=== PATIENT | male | born 1940 | race Caucasian/White ===

== ENCOUNTER 2018-08-05 21:18 | Inpatient (IN) | payer MEDICARE ==
[~2018-08-05] VITALS: Ht 182.9 cm; Wt 97.1 kg
[~2018-08-05 21:18] MED LIST: ALBIPROI INH; ALBU.083IS IH; ALBU2.5V5 NEB; ALLO300; ALLO300 PO; AMOCLA875 PO; ASPI325; ASPI325EC PO; ATEN50; ATEN50 PO; BECL80OI INH; BETA1; Carvedilol12.5 MG PO; FLUT.05NI; FLUT1DIS8 INH; FURO40; FURO40 PO; Flonase 0.05% N16 GM; HYDACE5 PO; Hytrin2 MG PO; IPRA.03NI; LEVFLO500 PO; LEVITRA PO; LISI10 PO; LISI20 PO; LOVA20; LOVA20 PO; MIRALAX17 GM PO; NITR.4SL SL; Norco 5-325 Ta1 EACH PO; PRED10 PO; PRED20 PO; PRINIVIL; Prednisone20 MG PO; SERT50 PO; SIMV5 PO; SPIR25; SPIR25 PO; TERA2; TERA2 PO; Zocor20 MG PO
[2018-08-05 21:35] LABS: BASOPHILS ABSOLUTE AUTO 0.02 K/mm3 (0.00-0.23); BASOPHILS PERCENT AUTO 0 % (0-2); EOSINOPHILS ABSOLUTE AUTO 0.03 K/mm3 (0.00-0.68); EOSINOPHILS PERCENT AUTO 1 % (0-6); Hematocrit 26.9 % (37.0-53.0); Hemoglobin 9.2 g/dL (13.5-17.5); IMMATURE GRAN PERCENT AUTO 2 % (0-1); LYMPHOCYTES ABSOLUTE AUTO 0.51 K/mm3 (0.84-5.20); LYMPHOCYTES PERCENT AUTO 8 % (21-46); MONOCYTES ABSOLUTE AUTO 1.37 K/mm3 (0.16-1.47); MONOCYTES PERCENT AUTO 22 % (4-13); Mean Corpuscular HGB 34.8 pg (26.0-34.0); Mean Corpuscular HGB Conc 34.2 g/dL (31.5-36.5); Mean Corpuscular Volume 102 fL (80-100); Mean Platelet Volume 10.2 fL (9.1-12.4); NEUTROPHILS PERCENT AUTO 67 % (41-73); NRBC ABSOLUTE 0.03 K/mm3 (0.00-0.02); NRBC Auto 0.5 /100 WBC (0.0-0.2); Platelet Count 163 K/mm3 (150-400); RDW Coefficient Variation 19.5 % (11.7-14.2); RDW Standard Deviation 72.7 fL (35.1-46.3); Red Blood Cell Count 2.64 M/mm3 (4.30-5.90); White Blood Cell Count 6.23 K/mm3 (4.00-11.30)
[2018-08-05 21:52] LABS: Alanine Aminotransfer (ALT/SGP 30 U/L (12-78); Albumin/Globulin Ratio 1.7 (0.8-1.8); Alk Phos 60 U/L (50-136); Anion Gap 6 mmol/L (6-16); Aspartate Aminotrans (AST/SGOT 19 U/L (12-37); Bilirubin, Total 1.7 mg/dL (0.1-1.0); Blood Urea Nitrogen 12 mg/dL (8-24); Bun/Creatinine Ratio 17.5 (12.0-20.0); CO2, Blood 27 mmol/L (21-32); Chloride, Blood 90 mmol/L (98-108); Creatinine, Blood 0.69 mg/dL (0.60-1.20); Globulin, Blood 2.3 g/dL (2.2-4.0); Glomerular Filtration Rate >60 (60-); Glucose, Blood 105 mg/dL (70-99); Potassium, Blood 4.4 mmol/L (3.5-5.5); Sodium, Blood 123 mmol/L (136-145); Total Protein, Blood 6.3 g/dL (6.4-8.2); Troponin I 0.016 ng/mL (0.000-0.040)
[2018-08-05 22:10] LABS: Base Excess Venous 1.2 mmol/L; Bicarbonate Venous 25.3 mmol/L (24.0-30.0); PCO2 Venous 44.2 mmHg (38-42); PO2 Venous 85.2 mmHg (38-42); pH Blood Venous 7.38 (7.34-7.37)
[2018-08-05] MEDS ORDERED: CARV6.25 PO (22:45)
[2018-08-05] MEDS ORDERED: LO-DOSE ASPIRIN81 MG PO (22:46)
[2018-08-05] MEDS ORDERED: TERA5 PO (22:46)
--- NOTE | 2018-08-05 23:58 | NUR ---
ADMIT NOTE RECEIVED REPORT FROM MADIHA MCDONALD. PT ARRIVES TO ROOM VIA GURNEY, TX'D TO BED WITH SLIDER SHEET AND STAFF X 4. PT IS ABLE TO ASSIST WITH TURNING FROM SIDE TO SIDE BUT HAS INCREASED WORK OF BREATHING WITH MINIMAL ACTIVITY. RT PRESENT WITH BIPAP AT BEDSIDE, PT IS MAINTAINING SATS IN THE LOW 90'S ON [address] NC. CONT BIOX IN PLACE. PT STATES "I'VE GOTTA PEE RIGHT NOW". ATTEMPTS TO VOID WHILE IN BED WITH URINAL YIELD MINIMAL RESULTS VIA DRIBBLING STREAM OVER LONG PERIODS OF TIME. PT STATES "I STILL NEED TO KEEP PEEING BUT I THINK I NEED TO STAND". AFTER ATTEMPTING TO ASSIST PT TO SIT ON EDGE OF BED, PT BECOMES VERY DISTRESSED WITH RESPIRATORY RATE IN THE HIGH 40'S, UNABLE TO TOLERATE ACTIVITY. CALL PLACED TO DR. BRISENO AND ORDER RECEIVED FOR BLADDER SCAN. RESULT OF [address] BRISENO AND ORDER RECEIVED FOR INDWELLING CATHETER FOR STRICT I/O'S AND RESPIRATORY DISTRESS WITH DIURESIS. PLACED COUDE WITH MINIMAL DIFFICULTY, PT TOLERATED WELL AND IMMEDIATE RETURN OF URINE IN BAG OF APPROX 500 ML. PT STATES "THAT FEELS MUCH BETTER LIKE I CAN REST NOW". WILL INITIATE ADMISSION ORDERS AND MONITOR PT CLOSELY. BED ALARM ON AND BELONGINGS IN REACH.
[2018-08-06] MEDS ORDERED: FLUT1DIS8 INH (01:51)
[2018-08-06] MEDS ORDERED: Flonase 0.05% N16 GM (01:53)
[2018-08-06] MEDS ORDERED: GAVILAX17 GM PO (01:54)
--- NOTE | 2018-08-06 02:00 | NUR ---
HANDOFF REPORT GIVEN TO PIA MCDONALD TO ASSUME CARE AT THIS TIME. PT IS RESTING IN BED, CONFUSED AND CALLING OUT AT TIMES. VSS, NO ACUTE CONCERNS.
--- NOTE | 2018-08-06 03:45 | NUR ---
ED ADMIT AT 0000. CONFUSED ABOUT WHEREABOUTS BUT DOES KMOW NAME AND A FEW RELATIVES BY NAME. ENC TO VOID INSISTING HE IS UNABLE . BLADDER SCAN NOTED 271 ML BUT COMPLETELY MISERABLE AND ESCALATING W/ ANXIETY AND NOW VERY TACHEPNEC AND 32 RR. REFUSES BIPAP NOW BUT 2L NC WNL SATS/ DENIES SPECIFIC PAIN .GENERAL RESTLESSNESS AND ANXIETY.MD AGREES TO HAVE LOPEZ REMAIN IN . 500 ML RETURNS IMMEDIATELY. EXTREME BOUTS OF CONFUSION AND STAFF CONSTANT REMINDERS OF CONDITION AND WHERE ABOUTS AND FAMILY NOT HERE HE IS TALKING TO THEM AND THINKS HE IS AT HOME. SOME PERIOD OF CALMNESS THEN ESCALATED AGAIN AT 0330 AND TRIES TO GET OUT OF BED. ENC FOR THE SECOND TIME TO WEAR BIPAP AND THIS TIME HE IS KEEPING ON LONGER THAN 10 MIN. RR SLOWING FROM 40 W/ ANXIETY AND PANIC TO 26 AND RESTING A LITTLE.HIGH FOWLERS . BEFORE BIPAP ON, A LOT OF THICK WHITE SPUTUM ..GREAT COUGH EFFORT. SR BBB.
[2018-08-06 04:24] LABS: BASOPHILS ABSOLUTE AUTO 0.01 K/mm3 (0.00-0.23); BASOPHILS PERCENT AUTO 0 % (0-2); EOSINOPHILS PERCENT AUTO 0 % (0-6); Hematocrit 29.9 % (37.0-53.0); Hemoglobin 10.2 g/dL (13.5-17.5); IMMATURE GRAN ABSOLUTE AUTO 0.06 K/mm3 (0.00-0.10); IMMATURE GRAN PERCENT AUTO 1 % (0-1); LYMPHOCYTES ABSOLUTE AUTO 0.25 K/mm3 (0.84-5.20); LYMPHOCYTES PERCENT AUTO 6 % (21-46); MONOCYTES ABSOLUTE AUTO 0.29 K/mm3 (0.16-1.47); MONOCYTES PERCENT AUTO 6 % (4-13); Mean Corpuscular HGB 34.8 pg (26.0-34.0); Mean Corpuscular HGB Conc 34.1 g/dL (31.5-36.5); Mean Corpuscular Volume 102 fL (80-100); Mean Platelet Volume 10.3 fL (9.1-12.4); NEUTROPHILS ABSOLUTE AUTO 3.92 K/mm3 (1.96-9.15); NEUTROPHILS PERCENT AUTO 87 % (41-73); NRBC ABSOLUTE 0.03 K/mm3 (0.00-0.02); NRBC Auto 0.7 /100 WBC (0.0-0.2); Platelet Count 160 K/mm3 (150-400); RDW Coefficient Variation 19.5 % (11.7-14.2); RDW Standard Deviation 73.7 fL (35.1-46.3); Red Blood Cell Count 2.93 M/mm3 (4.30-5.90); White Blood Cell Count 4.53 K/mm3 (4.00-11.30)
[2018-08-06 04:42] LABS: Anion Gap 9 mmol/L (6-16); Blood Urea Nitrogen 12 mg/dL (8-24); Bun/Creatinine Ratio 19.8 (12.0-20.0); CO2, Blood 26 mmol/L (21-32); Calcium, Blood 8.4 mg/dL (8.5-10.1); Chloride, Blood 90 mmol/L (98-108); Creatinine, Blood 0.61 mg/dL (0.60-1.20); Glomerular Filtration Rate >60 (60-); Glucose, Blood 148 mg/dL (70-99); Potassium, Blood 3.7 mmol/L (3.5-5.5); Sodium, Blood 125 mmol/L (136-145)
--- NOTE | 2018-08-06 06:15 | NUR ---
SHIFT SUMMARY.KEPT BIPAP ON FOR LAST 2.5 HR. W/ GOOD SLEEP / AROUSABLE AND NO FURTHER PANIC EPISODES SINCE PRE BIPAP AND GOOD SLEEP. RR USUALLY 24 WHEN ASLEEP ON BIPAP..12/5...30 % FIO2 BUR 16
--- NOTE | 2018-08-06 16:29 | NUR ---
DEVICE INTERROGATION DONE PER ORDER. LAST INTERROGATION 11/29/17.NORMAL FUNCTIONING Crow-V ICD. NORMAL ATRIAL SENSING AND CAPTURE. NORMAL VENTRICULAR CAPTURE. P WAVE 3.0V. NO R WAVE (VVI RATE 30 BPM). ATRIAL LEAD IMPEDANCE 400 OHMS. RV LEAD IMPEDANCE 637 OHMS. LV LEAD IMPEDANCE 737 OHMS. ATRIAL CAPTURE THRESHOLD .625 V@.5ms. RV CAPTURE THRESHOLD 0.5V@.5ms.LV CAPTURE THRESHOLD 1.125V@.5MS. Ap90%.Bi-Mechanical Striper >99%. NO EVENTS NOTED. INFORMATION GIVEN TO JOSEPHINE MCDONALD.
--- NOTE | 2018-08-06 16:34 | NUR ---
ERAN IV SITE.
--- NOTE | 2018-08-06 16:35 | NUR ---
RAC 20G IV SITE.
--- NOTE | 2018-08-06 16:42 | NUR ---
FIELD START, 18G LAC.
--- NOTE | 2018-08-06 19:39 | NUR ---
HE HAS HAD ANGST MOST OF THE DAY BECAUSE HE HATES BEING IN THE HOSPITAL. HE SAT UP FOR SEVERAL HRS, BEING MORE COMFORTABLE IN THE CHAIR THAN THE BED. O2 NC 2L AFTER COMING OFF THE BIPAP AROUND 1030 THIS MORNING. SATS WNL. LOTS OF U.O. IN LOPEZ FROM BID LASIX. DENIES SOB NOW BUT LOOKS SOB INTERMITTENTLY. HAS AN INTERMITTENT COUGH. PACEMAKER INTERROGATION DONE TODAY AND ECHO DONE. HE HAD 2 SMALL BM'S ON BSC TODAY. HE TRANSFERS WELL WITH 1 ASSIST. POOR APPETITE. DENIED NEED FOR PAIN MEDICINE. HE UNDERSTANDS HE WILL BE WITH US ANOTHER NIGHT.
--- NOTE | 2018-08-07 05:13 | NUR ---
SHIFT SUMMARY PT ALERT, ORIENTED TO SELF AND FAMILY ONLY. PT REQUIRING REORIENTATION T/O SHIFT OF LOCATION AND ABSENCE OF SPOUSE THAT PT CALLS OUT FOR. PT EAGER TO GO HOME. VSS. SPO2 > 90% ON 2L NC. PT WEARING BIPAP FOR SHORT INCREMENTS THIS SHIFT X2. MONITOR SHOWS SR W/ BBB, HR 60'S-70'S. LOPEZ CATH PATENT AND DRAINING CLEAR YELLOW URINE. WILL CONTINUE TO MONITOR AND PROVIDE CARE UNTIL REPORT OFF TO DAY SHIFT RN.
[2018-08-07 07:01] LABS: BASOPHILS PERCENT AUTO 0 % (0-2); EOSINOPHILS PERCENT AUTO 0 % (0-6); Hematocrit 26.6 % (37.0-53.0); Hemoglobin 9.2 g/dL (13.5-17.5); IMMATURE GRAN ABSOLUTE AUTO 0.02 K/mm3 (0.00-0.10); IMMATURE GRAN PERCENT AUTO 1 % (0-1); LYMPHOCYTES ABSOLUTE AUTO 0.53 K/mm3 (0.84-5.20); LYMPHOCYTES PERCENT AUTO 16 % (21-46); MONOCYTES ABSOLUTE AUTO 0.78 K/mm3 (0.16-1.47); MONOCYTES PERCENT AUTO 23 % (4-13); Mean Corpuscular HGB Conc 34.6 g/dL (31.5-36.5); Mean Corpuscular Volume 101 fL (80-100); Mean Platelet Volume 9.9 fL (9.1-12.4); NEUTROPHILS ABSOLUTE AUTO 2.08 K/mm3 (1.96-9.15); NEUTROPHILS PERCENT AUTO 61 % (41-73); NRBC ABSOLUTE 0.04 K/mm3 (0.00-0.02); NRBC Auto 1.2 /100 WBC (0.0-0.2); Platelet Count 161 K/mm3 (150-400); RDW Coefficient Variation 19.9 % (11.7-14.2); RDW Standard Deviation 74.4 fL (35.1-46.3); Red Blood Cell Count 2.63 M/mm3 (4.30-5.90); White Blood Cell Count 3.41 K/mm3 (4.00-11.30)
[2018-08-07 07:22] LABS: Anion Gap 7 mmol/L (6-16); Blood Urea Nitrogen 23 mg/dL (8-24); Bun/Creatinine Ratio 33.7 (12.0-20.0); CO2, Blood 31 mmol/L (21-32); Calcium, Blood 8.5 mg/dL (8.5-10.1); Chloride, Blood 91 mmol/L (98-108); Creatinine, Blood 0.68 mg/dL (0.60-1.20); Glomerular Filtration Rate >60 (60-); Glucose, Blood 128 mg/dL (70-99); Potassium, Blood 3.6 mmol/L (3.5-5.5); Sodium, Blood 129 mmol/L (136-145)
--- NOTE | 2018-08-07 07:30 | NUR ---
AM ASSESSMENT: Pt resting in bed, yelling out for help. Saying "nobody checks on me, everyone is just out there laughing and not helping." When asked what he needs, pt states that he needs to have his eye drops. Denies other needs. Pt was given eye drops and encouraged to use his call light. Pt is oriented to self, knows he is at a hospital, but is confused to situation and seems very unaware of hospital routine. VSS. LS with wheezing throughout. HR reg. BT positive. Pulses palp. +2 edema in BLE. Pt C/O chronic hip pain, rates it about a 4/10. Bed alarm on and call light in reach. Will garrett.
--- NOTE | 2018-08-07 18:28 | NUR ---
SHIFT SUMMARY: Pt up in recliner chair at this time. Has been up in recliner since this AM and has been able to stand with staff and march in place 2 times and just stand 2 times. Pt has declined wanting to go back to bed at all today. VSS throughout shift. LS have remained wheezy but was able to titrate down to RA. Biox has remained >90%. Pt has wanted to go home all day. When family came to visit physician and then palliative care nurse went in to visit. Plan was made to possibly discharge tomorrow with hospice. NO other changes at this time. Will report to night RN. Stable at end of shift.
--- NOTE | 2018-08-08 07:28 | NUR ---
AM ASSESSMENT: Pt sitting up at edge of bed when RN entered room. Pt very upset that he has not been discharged yet. States "I was told that I would be leaving this morning". Reminded Pt that he was told he would be discharged today, but not in the morning, after the physican saw him and after he had everything he needed at home. Pt was not pleased with this and voiced his frustrations. Pt was agreeable to treatment and allowed VS and assessment. VSS. LS with wheezing, HR Reg. Bt positive. Pt passing a lot of flatus but no BM. Pulses palp. Pt has 2+ edema in BLE. Call light in reach but pt tends to yell out instead of call. Pt does have very poor vision and can only see some shapes and peripherally. Steady with walker. Will continue to monitor. Call light in reach.
--- NOTE | 2018-08-08 07:47 | NUR ---
SUMMARY: ADMIT DAY 2 CHF EXACERBATION ON HOSPITALIST SERVICE. VSS, ROOM AIR, 2L O2 WHILE ASLEEP IN BED TO MAINTAIN SPO2 >88%. WHEEZY @ TIMES BUT RESOLVED WITH NEB TX AND PRODUCTIVE COUGH. PT MOVES WELL WITH 1 ASSIST USING GB, FWW TO BSC, CHAIR AND BED. LOPEZ REMAINS PATENT CLEAR, YELLOW URINE WITH CATH CARE COMPLETED X2 AND TRACE SCROTAL EDEMA NOTED. PT CONTINUES TO BE DEMANDING @ TIMES AND CALLS OUT FOR HELP; CONFUSED AT TIMES AND CONCRETE IN THINKING. PLAN TO DC HOME TODAY WITH HOSPICE.
--- NOTE | 2018-08-08 09:56 | NUR ---
Pt visit this AM. Pt standing over BC upon arrival. Certified Pathology Assistant Libby present during visit as well. Assisted RETIREMENT BENEFITS SPECIALIST with Pt sitting on bed. Listened as Pt expressed frustrations about being in the hospital. Pt is anxious to go home. Called and spoke with ambulatory care coordinator Cecile regardeing discharge plan prior to visit. Spoke with ambulatory care coordinator Page outside of Pt's room and she reports hospice liamaria luz Ila is currently working on hospice discharge. Spoke with Pt's bedside nurse Andrea and she reprts no concerns at this time. Palliative Care will remain available.
[2018-08-08] MEDS ORDERED: ACET325 PO (15:34)
[2018-08-08] MEDS ORDERED: ALPR.25 PO (15:35)
[2018-08-08] MEDS ORDERED: PRED20 PO (15:37)
--- NOTE | 2018-08-08 16:47 | NUR ---
Discharge: Pt very anxious for discharge. D/C orders for home with hospice were obtained per plan and D/C was arranged. Pt daughters and grandsons were in room and were given D/C instructions. Medications were called to Brennon Castellanos. Home health hospice was notified and will contact pt for a follow up. IV and dangelo cath were discontinued by Merissa CH. IV was intact. Pt denied issues. Pt dressed and Left via w/c ambulance to home. Stable at time of discharge.
== END 2018-08-08 15:40 | disposition hospice, home (50) | DRG 871 ==
LOC: ER 21:18 → PCU 23:53
PROVIDERS: Emergency Medicine; Internal Medicine; ADMIT Family Medicine
PROC: 5A09357 Assistance with Respiratory Ventilation, Less than 24 Consecutive Hours, Continuous Positive Airway Pressure (ICD-10-PCS; principal; 2018-08-05)
DX: A41.01 Sepsis due to Methicillin susceptible Staphylococcus aureus (principal); J96.01 Acute respiratory failure with hypoxia; I50.23 Acute on chronic systolic (congestive) heart failure; J96.02 Acute respiratory failure with hypercapnia; J15.211 Pneumonia due to Methicillin susceptible Staphylococcus aureus; J44.1 Chronic obstructive pulmonary disease with (acute) exacerbation; J98.11 Atelectasis; E87.1 Hypo-osmolality and hyponatremia; R65.20 Severe sepsis without septic shock; I11.0 Hypertensive heart disease with heart failure; Z51.5 Encounter for palliative care; I27.20 Pulmonary hypertension, unspecified; D69.6 Thrombocytopenia, unspecified; Z87.891 Personal history of nicotine dependence
CPT/HCPCS: 36415; 51703; 71045; 80048; 80053; 82803; 83880; 84145; 84484; 85025; 93005; 93010; 93283; 93306; 94640; 94644; 94660; 94760; 94761; 94762; 96374; 96375; 97162; 97530; 99285-25; A9270-GY; J1650; J1940; J2930; J7512